=== PATIENT | male | born 1975 | race Two or more races ===

== ENCOUNTER 2016-03-06 09:56 | Emergency (ER) | payer MEDICAID ==
[~2016-03-06] VITALS: Ht 167.6 cm; Wt 81.6 kg
[~2016-03-06 09:56] MED LIST: ANTIBIOTIC; KEFLEX; NAPROXEN
[2016-03-06] MEDS ORDERED: cefTRIAXone SOD 1,000 MG VL IM ONE (10:30)
[2016-03-06] MEDS ORDERED: KETOROLAC TROMETH 60MG/2ML VIAL IM ONE (10:30)
[2016-03-06] MEDS ORDERED: ACETAMINOPHEN 325 MG TAB PO ONE (10:45)
[2016-03-06 10:51] VITALS: BP 142/86
== END 2016-03-06 11:27 | disposition home or self-care (01) ==
LOC: ER 09:58
DX: J02.9 Acute pharyngitis, unspecified (principal); S20.212A Contusion of left front wall of thorax, initial encounter; F20.9 Schizophrenia, unspecified; F17.210 Nicotine dependence, cigarettes, uncomplicated; X58.XXXA Exposure to other specified factors, initial encounter; Y93.89 Activity, other specified; Y99.8 Other external cause status; Y92.89 Other specified places as the place of occurrence of the external cause
CPT/HCPCS: 71250; 96372; 99284; J0696; J1885

== ENCOUNTER 2016-03-19 11:07 | Emergency (ER) | payer MEDICAID ==
[~2016-03-19] VITALS: Ht 167.6 cm; Wt 86.2 kg
[2016-03-19 11:17] VITALS: BP 127/77
== END 2016-03-19 13:56 | disposition home or self-care (01) ==
LOC: ER 11:07
DX: S29.019A Strain of muscle and tendon of unspecified wall of thorax, initial encounter (principal); S29.011A Strain of muscle and tendon of front wall of thorax, initial encounter; F17.210 Nicotine dependence, cigarettes, uncomplicated; V43.12XA Car passenger injured in collision with other type car in nontraffic accident, initial encounter; Y93.89 Activity, other specified; Y99.8 Other external cause status; Y92.481 Parking lot as the place of occurrence of the external cause
CPT/HCPCS: 71101

== ENCOUNTER 2022-08-01 07:27 | Inpatient (IN) | payer MEDICAID, OTHER ==
[~2022-08-01] VITALS: Ht 182.9 cm; Wt 86.4 kg
[2022-08-01] MEDS ORDERED: LORazepam 2MG/ML-1ML VIAL ONE (07:33)
[2022-08-01] MEDS ORDERED: HALOPERIDOL LACTATE 5 MG/ML INJ VIAL ONE (07:34)
[2022-08-01] MEDS ORDERED: HALOPERIDOL LACTATE 5 MG/ML INJ VIAL IM ONE (07:45)
[2022-08-01] MEDS ORDERED: LORazepam 2MG/ML-1ML VIAL IM ONE (07:45)
[2022-08-01 08:09] LABS: Basophils # (auto) 0.1 10 ^3/uL (0-0.2); Basophils % (auto) 0.5 % (0.0-2.0); Eosinophils # (auto) 0.1 10 ^3/uL (0-0.8); Hematocrit 45.6 % (41.0-53.0); Hemoglobin 15.2 g/dL (13.5-17.5); Lymphocytes # (auto) 5.6 10 ^3/uL (0.4-5.4); Lymphocytes % (auto) 39.8 % (10.0-50.0); Mean Corpuscular Hemoglobin 30.8 pg (28.0-32.0); Mean Corpuscular Hgb Conc. 33.3 g/dL (32.0-36.0); Mean Corpuscular Volume 92.4 fL (80.0-100.0); Monocytes % (auto) 7.3 % (0.0-12.0); Neutrophils # (auto) 7.2 10 ^3/uL (1.6-8.6); Neutrophils % (auto) 51.4 % (37.0-80.0); Nucleated Red Blood Cells % 0.1 %; Red Blood Cells 4.93 10^6/uL (4.5-5.90); Red Cell Distribution Width 13.7 % (11.8-14.3); White Blood Cell 14.1 10^3/uL (4.4-10.8)
[2022-08-01 08:44] LABS: Albumin 4.8 g/dL (3.4-5.0); BUN/Creatinine Ratio 9.4 (10.0-20.0); Bilirubin, Total 1.4 mg/dL (0.2-1.0); Calcium 9.1 mg/dL (8.5-10.1); Total Protein 8.4 g/dL (6.4-8.2)
[2022-08-01 08:50] LABS: Potassium 2.9 mmol/L (3.5-5.1)
[2022-08-01] MEDS ORDERED: POTASSIUM EFFERVESENT TAB 25 MEQ PO ONE (09:00)
[2022-08-01] MEDS ORDERED: SODIUM CHLORIDE 0.9% 1,000 ML IV ONE ×2 (09:15)
[2022-08-01] MEDS ORDERED: NITROGLYCERIN 0.4 MG SL TAB SL PRN (11:15)
[2022-08-01] MEDS ORDERED: MORPHINE SULFATE INJ 2 MG/ml SYRG IV PRN (11:15)
[2022-08-01] MEDS ORDERED: SODIUM CHLORIDE 0.9% 1,000 ML IV SCH (11:15)
[2022-08-01] MEDS ORDERED: POTASSIUM CHL 20MEQ/100ML 100 ML IV SCH (11:15)
[2022-08-01 11:28] LABS: Salicylate < 1.7 mg/dL (2.8-20.0)
[2022-08-01 11:32] LABS: Acetaminophen < 2.0 ug/mL (10-30)
[2022-08-01] MEDS ORDERED: SODIUM BICARBONATE 50ML VIAL 150 ML in D5W 5% 1,000 ML IV ONE (11:45)
[2022-08-01] MEDS: POTASSIUM CHL 20MEQ/100ML 100 ML IV SCH ×2 (11:50→14:18)
[2022-08-01 11:55] LABS: Blood Alcohol < 3.0 mg/dL (0-5); Cholesterol 205 mg/dL (< 200); HDL Cholesterol 67 mg/dL (40-59); LDL Cholesterol 129 mg/dL (< 100); Triglycerides 93 mg/dL (< 150)
[2022-08-01 12:04] LABS: Urine Bacteria NONE SEEN /hpf (None Seen); Urine Blood Negative /uL (Negative); Urine Mucus FEW (None Seen); Urine Specific Gravity 1.024 (1.001-1.035); Urine WBC 1 /hpf (0 - 3)
[2022-08-01 12:13] LABS: Amphetamine Screen, Urine POSITIVE (NEGATIVE); Barbiturate Scree,Urine NEGATIVE (NEGATIVE); Benzodiazephine Screen, Urine NEGATIVE (NEGATIVE); Cannabinoid Screen, Urine NEGATIVE (NEGATIVE); Cocaine Screen, Urine NEGATIVE (NEGATIVE)
[2022-08-01 12:20] LABS: Opiate Scree,Urine NEGATIVE (NEGATIVE); Phencyclidine Screen, Urine NEGATIVE (NEGATIVE)
[2022-08-01] MEDS ORDERED: PANTOPRAZOLE 40 MG/10 ML VIAL INJ IV ONE (14:00)
[2022-08-01 23:30] VITALS: BP 109/72
[2022-08-02 05:10] VITALS: BP 108/62
[2022-08-02 06:29] LABS: Basophils # (auto) 0 10 ^3/uL (0-0.2); Basophils % (auto) 0.6 % (0.0-2.0); Eosinophils # (auto) 0.3 10 ^3/uL (0-0.8); Hematocrit 38.4 % (41.0-53.0); Hemoglobin 13.2 g/dL (13.5-17.5); Lymphocytes # (auto) 2.3 10 ^3/uL (0.4-5.4); Lymphocytes % (auto) 35.3 % (10.0-50.0); Mean Corpuscular Hemoglobin 31.3 pg (28.0-32.0); Mean Corpuscular Hgb Conc. 34.4 g/dL (32.0-36.0); Monocytes # (auto) 0.5 10 ^3/uL (0-1.3); Monocytes % (auto) 7.8 % (0.0-12.0); Neutrophils # (auto) 3.4 10 ^3/uL (1.6-8.6); Neutrophils % (auto) 52.3 % (37.0-80.0); Nucleated Red Blood Cells % 0.1 %; Red Blood Cells 4.22 10^6/uL (4.5-5.90); Red Cell Distribution Width 13.4 % (11.8-14.3); White Blood Cell 6.4 10^3/uL (4.4-10.8)
[2022-08-02 06:51] LABS: Albumin 3.4 g/dL (3.4-5.0); Calcium 7.9 mg/dL (8.5-10.1); Potassium 3.7 mmol/L (3.5-5.1)
[2022-08-02 06:55] LABS: BUN/Creatinine Ratio 11.8 (10.0-20.0); Bilirubin, Total 0.8 mg/dL (0.2-1.0); Total Protein 6.2 g/dL (6.4-8.2)
[2022-08-02] MEDS ORDERED: PANTOPRAZOLE 40 MG/10 ML VIAL INJ IV SCH (10:00)
== END 2022-08-02 08:45 | disposition left against medical advice (07) | DRG 52 ==
LOC: ER 07:27 → TELE 11:17 → TELE-WESTW 22:55
PROVIDERS: ADMIT Registered Nurse; ATTEND Registered Nurse
DX: G93.41 Metabolic encephalopathy (principal); N17.0 Acute kidney failure with tubular necrosis; R73.9 Hyperglycemia, unspecified; E87.20 Acidosis, unspecified; E87.6 Hypokalemia; F20.9 Schizophrenia, unspecified; F17.210 Nicotine dependence, cigarettes, uncomplicated; Z59.00 Homelessness unspecified
CPT/HCPCS: 36415; 70450; 71045; 76775; 80053; 80061; 80307; 80320; 80329; 81001; 82140; 83036; 84132; 84443; 85025; 93005; 96360; 96372; C9113; G0378; J3480